=== PATIENT | female | born 1940 | race Caucasian/White ===

== ENCOUNTER 2020-10-19 15:07 | Inpatient (IN) | payer MEDICARE ==
[~2020-10-19] VITALS: Ht 162.6 cm; Wt 81.6 kg
[2020-10-19 15:09] VITALS: BP 138/74
[2020-10-19] MEDS ORDERED: LIPITOR 10 MG10 M1 PO (15:15)
[2020-10-19] MEDS ORDERED: CHILDREN'S ASPI81 M1 PO (15:15)
[2020-10-19] MEDS ORDERED: OMEPRAZOLE 20 M20 M1 PO (15:16)
[2020-10-19] MEDS ORDERED: KAPSPARGO SPRIN50 MG PO (15:16)
[2020-10-19 15:37] LABS: ABSOLUTE LYMPHOCYTES 1.2 thou/uL (0.8-5.3); ABSOLUTE MONOCYTES 0.2 thou/uL (0.0-1.2); ABSOLUTE NEUTROPHILS 3.3 thou/uL (1.6-8.1); BASOPHILS 0.8 %; HEMATOCRIT 34.4 % (37.0-47.0); HEMOGLOBIN 11.2 gm/dL (12.0-15.0); LYMPHOCYTES 25.1 %; MCH 27.2 pg (26.0-34.0); MCHC 32.6 g/dL (28.0-37.0); MCV 83.3 fL (80.0-100.0); MONOCYTES 4.8 %; MPV 7.7 fl. (7.2-11.1); NUCLEATED RBCS 0 /100WBC; PLATELET COUNT* 263 thou/uL (150-400); POLYS 69.3 %; RBC 4.13 mil/uL (4.20-5.00); RDW-CV 14.7 % (10.5-14.5); WBC 4.8 thou/uL (4.0-11.0)
[2020-10-19 15:47] LABS: CREATININE 0.8 mg/dL (0.6-1.3); POTASSIUM 3.1 mmol/L (3.5-5.1)
[2020-10-19 15:51] LABS: ALBUMIN 2.7 g/dL (3.4-5.0); TOTAL BILIRUBIN 0.3 mg/dL (<0.1-1.0); TOTAL PROTEIN 6.4 g/dL (6.4-8.2)
[2020-10-19 18:16] LABS: URINE BILIRUBIN NEGATIVE (Negative); URINE BLOOD TRACE (Negative); URINE CLARITY CLEAR; URINE COLOR YELLOW; URINE GLUCOSE-RANDOM NEGATIVE (Negative); URINE KETONES NEGATIVE (Negative); URINE LEUKOCYTES-REFLEX NEGATIVE (Negative); URINE NITRITE-REFLEX NEGATIVE (Negative); URINE PROTEIN 1+ (Negative); URINE UROBILINOGEN 0.2 E.U./dl (0.2-1.0)
[2020-10-19 21:00] VITALS: BP 130/56
[2020-10-20] VITALS (7 sets, daily range): BP systolic 95–136; BP diastolic 46–78
--- NOTE | 2020-10-20 09:16 | EKG ---
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
--- NOTE | 2020-10-20 17:51 | NUR ---
PT ARRIVED FROM ER AT 0835, SHE IS A/OX3, UP AD DIEGO, HR NSR ON TELE, ON 2L NC AND TOLERATING WELL. PT DENIES HAVING ANY C/O PAIN OR DISCOMFORT. SHE HAS ADEQUATE URINE OUTPUT, AND HAD A BM TOADAY. 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
[2020-10-21 00:31] VITALS: BP 117/52
--- NOTE | 2020-10-21 04:34 | NUR ---
ASSUMED CARE AT 1905H, ON NC AT 2LPM AND TOLERATED. SEEN ON BED COMFORTABLE. NO FEVER AND NO DISTRESS. CONTINUE MONITORING AND TOWARDS GOALS.
[2020-10-21 04:42] VITALS: BP 129/46
[2020-10-21 05:12] LABS: ABSOLUTE LYMPHOCYTES 0.9 thou/uL (0.8-5.3); ABSOLUTE MONOCYTES 0.2 thou/uL (0.0-1.2); ABSOLUTE NEUTROPHILS 3.5 thou/uL (1.6-8.1); BASOPHILS 0.1 %; HEMATOCRIT 28.6 % (37.0-47.0); HEMOGLOBIN 9.6 gm/dL (12.0-15.0); LYMPHOCYTES 19.2 %; MCHC 33.7 g/dL (28.0-37.0); MCV 83.2 fL (80.0-100.0); MPV 7.8 fl. (7.2-11.1); NUCLEATED RBCS 0 /100WBC; PLATELET COUNT* 265 thou/uL (150-400); POLYS 75.7 %; RBC 3.44 mil/uL (4.20-5.00); RDW-CV 14.9 % (10.5-14.5); WBC 4.6 thou/uL (4.0-11.0)
[2020-10-21 05:37] LABS: ALBUMIN 2.3 g/dL (3.4-5.0); CALCIUM 8.1 mg/dL (8.5-10.1); CREATININE 0.8 mg/dL (0.6-1.3); MAGNESIUM 2.2 mg/dL (1.8-2.4); POTASSIUM 3.3 mmol/L (3.5-5.1); TOTAL BILIRUBIN 0.2 mg/dL (<0.1-1.0); TOTAL PROTEIN 5.7 g/dL (6.4-8.2)
[2020-10-21 05:38] LABS: APTT 31.9 Seconds (25.0-31.3); INR 0.9
[2020-10-21 08:30] VITALS: BP 109/70
[2020-10-21 12:29] VITALS: BP 124/888
--- NOTE | 2020-10-21 14:03 | NUR ---
CM spoke with Pt's via phone. Pt is covid positive, on enhanced precautions. is negative. Pt is A&O. Normally independent. No DME. Pt does not wear home o2. No hx of HH or SNF. Goal is home at dc. Pt will need an ex ox at dc, if continuing to require o2, Pt is presently on 2L. GI consult for colitis. Plan to complete Remdisivir prior to dc.
[2020-10-21 15:53] VITALS: BP 145/67
--- NOTE | 2020-10-21 18:56 | NUR ---
PATIENT HAS REMAINED A&OX4, PLEASANT AND COOPERATIVE WITH CARES. PATIENT'S ONLY COMPLAINT IS LOOSE STOOLS. DENIES PAIN/N/V. MEDICATIONS AND FLUIDS ADMINISTERED ORDERED. PATIENT UP AD DIEGO TO BSC. CALL LIGHT AND FREQUENTLY USED ITEMS WITHIN REACH.
[2020-10-22] VITALS: BP 127/46
[2020-10-22 04:00] VITALS: BP 139/65
--- NOTE | 2020-10-22 05:27 | NUR ---
PT AO X4 LYING IN BED FOR ASSESSMENT THIS PM SHIFT. SHE IS FEELING BETTER OTHER THAN THE DIARRHEA. SHE IS HAVING QUITE A BIT OF BROWN LIQUID STOOL AND IS REQUESTING SOMETHING FOR THIS. HER POTASSIUM WAS LOW AND THIS WAS REPLACED LAST PM. PT IS GETTING UP TO BSC INDEPENDENTLY WITHOUT PROBLEM. PT WAS HAVING SOME DESATURATION AT BEDTIME AND RT PUT A HUMIDIFIER ON AND BUMPED HER UP TO 4L FOR BEDTIME, SHE MAINTAINED SAT>90 FOR THE REMAINDER OF THE NIGHT.CALL LIGHT WITHIN REACH.
[2020-10-22 07:33] LABS: HEMATOCRIT 31.8 % (37.0-47.0); HEMOGLOBIN 10.3 gm/dL (12.0-15.0); MCH 26.6 pg (26.0-34.0); MCHC 32.3 g/dL (28.0-37.0); MCV 82.4 fL (80.0-100.0); MPV 7.8 fl. (7.2-11.1); NUCLEATED RBCS 0 /100WBC; PLATELET COUNT* 316 thou/uL (150-400); RBC 3.86 mil/uL (4.20-5.00); RDW-CV 15.1 % (10.5-14.5); WBC 7.5 thou/uL (4.0-11.0)
[2020-10-22 07:44] LABS: ALBUMIN 2.3 g/dL (3.4-5.0); CALCIUM 8.2 mg/dL (8.5-10.1); CREATININE 0.8 mg/dL (0.6-1.3); MAGNESIUM 1.9 mg/dL (1.8-2.4); POTASSIUM 3.6 mmol/L (3.5-5.1); TOTAL BILIRUBIN 0.3 mg/dL (<0.1-1.0); TOTAL PROTEIN 5.9 g/dL (6.4-8.2)
[2020-10-22 08:06] LABS: ABSOLUTE LYMPHOCYTES 0.7 thou/uL (0.8-5.3); ABSOLUTE MONOCYTES 0.1 thou/uL (0.0-1.2); ABSOLUTE NEUTROPHILS 6.8 thou/uL (1.6-8.1); PLATELET ESTIMATE ADEQUATE
[2020-10-22 08:07] LABS: ANISOCYTOSIS 1+; POIKILOCYTOSIS 1+
[2020-10-22 08:23] VITALS: BP 133/66
[2020-10-22 12:00] VITALS: BP 139/72
--- NOTE | 2020-10-22 14:07 | NUR ---
Covid positive. Pt on 6L. Continue Remdisivir
[2020-10-22 18:44] VITALS: BP 142/70
--- NOTE | 2020-10-22 18:52 | NUR ---
PATIENT HAS REMAINED A&OX4, PLEASANT AND COOPERATIVE WITH CARES THIS SHIFT. PATIENT CONTINUES TO C/O DIARRHEA. STOOL SPECIMEN COLLECTED AND TAKEN TO LAB PER ORDER FROM DR. MAR. PATIENT'S OXYGEN NEEDS HAVE INCREASED COMPARED TO PREVIOUS SHIFT. MEDICATIONS ADMINISTERED ORDERED. PATIENT HAS 1 BOTTLE OF POTASSIUM, WHICH SOMEONE DROPPED OFF TO HER TODAY, IN THE PHARMACY. CALL LIGHT AND FREQUENTLY USED ITEMS WITHIN REACH.
[2020-10-22 20:30] VITALS: BP 140/79
[2020-10-23 00:46] VITALS: BP 145/53
[2020-10-23 03:59] VITALS: BP 138/67
--- NOTE | 2020-10-23 05:36 | NUR ---
PT AO X4, 6L NC, SHE RECEIVED A LATE DOSE OF LASIX AND HAS HAD A LARGE VOLUME OF URINE OUT THIS PM. IV ACCESS OBTAINED AND PT TAKEN TO CT FOR CTA BY WHEELCHAIR BY THIS RN. PT HAVING NO DISTRESS THROUGHOUT THE PROCEDURE. PT SATS DID FALL TO THE 87-88 RANGE WHILE SLEEPING, SHE WAS SNORING AND BREATHING SHALLOW AT THE TIME BUT WOKE EASILY AND SATS WERE AGAIN <90%. PT NOT EATING DUE TO FOOD NOT TASTING WELL, I ENCOURAGED HER TO ORDER FROM THE KITCHEN SOMETHING THAT SOUNDS GOOD TO HER. CALL LIGHT WITHIN REACH
[2020-10-23 07:13] LABS: HEMOGLOBIN 10.9 gm/dL (12.0-15.0); MCH 26.2 pg (26.0-34.0); RBC 4.14 mil/uL (4.20-5.00)
[2020-10-23 07:38] LABS: ALBUMIN 2.3 g/dL (3.4-5.0); CALCIUM 8.3 mg/dL (8.5-10.1); CREATININE 0.7 mg/dL (0.6-1.3); MAGNESIUM 1.9 mg/dL (1.8-2.4); POTASSIUM 3.3 mmol/L (3.5-5.1); TOTAL BILIRUBIN 0.4 mg/dL (<0.1-1.0); TOTAL PROTEIN 6.1 g/dL (6.4-8.2)
[2020-10-23 12:00] VITALS: BP 117/55
--- NOTE | 2020-10-23 14:19 | NUR ---
Covid positive. Anticipate dc in a few days. Pt o2 needs went up to 10L. Plan plasma today. GI following for diarrhea.
[2020-10-23 16:30] VITALS: BP 149/69; BP 153/62; BP 155/68
[2020-10-23 19:20] VITALS: BP 140/76
--- NOTE | 2020-10-23 20:46 | NUR ---
Pt remained A&O x4. Pt increased oxygen needs slightly today and will desat when getting up to the commode but oxygen rebounds quickly back to normal. Pt up to chair for second part of shift. Bed in low position, call light within reach.
[2020-10-24 00:24] VITALS: BP 122/43
--- NOTE | 2020-10-24 00:29 | NUR ---
ASSUMED CARE OF PT AT 1900. PT IS ALERT AND ORIENTED. VSS. PERRLA. PT IS ON 10 LITERS HIGH FLOW NASAL CANNULA. PT IS IN SINUS RYTHM ON THE TELEMETRY. PT IS RESTING COMFORTABLY IN BED. RESPIRATIONS ARE EVEN AND NONLABORED. WILL CONTINUE TO MONITOR PT.
[2020-10-24 04:05] VITALS: BP 138/63
[2020-10-24 04:51] LABS: HEMATOCRIT 31.5 % (37.0-47.0); HEMOGLOBIN 10.4 gm/dL (12.0-15.0); MCH 27.2 pg (26.0-34.0); MCHC 33.1 g/dL (28.0-37.0); MCV 82.1 fL (80.0-100.0); MPV 8.1 fl. (7.2-11.1); RBC 3.84 mil/uL (4.20-5.00); RDW-CV 15.2 % (10.5-14.5); WBC 4.5 thou/uL (4.0-11.0)
[2020-10-24 05:04] LABS: ALBUMIN 2.3 g/dL (3.4-5.0); CALCIUM 8.3 mg/dL (8.5-10.1); CREATININE 0.7 mg/dL (0.6-1.3); MAGNESIUM 1.9 mg/dL (1.8-2.4); POTASSIUM 3.3 mmol/L (3.5-5.1); TOTAL BILIRUBIN 0.5 mg/dL (<0.1-1.0)
[2020-10-24 08:25] VITALS: BP 118/67
[2020-10-24 09:43] LABS: BE 5.1 mmol/L (-2 to +3); PCO2 39.4 mmHg (35.0-45.0); PO2 79.2 mmHg (75.0-100.0); pH 7.482 (7.340-7.450)
--- NOTE | 2020-10-24 13:47 | NUR ---
Covid positive. Anticipate dc in a few days. On 7L o2. Doing well, will start neb
[2020-10-24 14:45] VITALS: BP 131/54; BP 132/58; BP 135/61
[2020-10-24 17:30] LABS: CALCIUM 8.5 mg/dL (8.5-10.1); CREATININE 0.8 mg/dL (0.6-1.3); POTASSIUM 3.1 mmol/L (3.5-5.1)
[2020-10-24 20:15] VITALS: BP 134/56
--- NOTE | 2020-10-24 21:56 | NUR ---
Pt remained A&O x4 for entire shift. Pt had some trouble keeping O2 Sat stable this morning and was placed on a non-rebreather mask. Dr. Camejo notified and orders recieved. Pt given extra dose of lasix. Pt noted preferring the mask to the NC because it did not hurt her nose and give her a headache. This afternoon when Dr. Paulson saw the pt, he asked that we try the NC again with a lower flow of O2 so it did not hurt her nose. Pt switched to NC at 8L and tolerated well. Pt given 2nd unit of convalescent plasma this afternoon and no reactions noted. Meds given per MAY. Fall precautions in place.
--- NOTE | 2020-10-24 23:23 | CON ---
[address] [address] CONSULTATION Name: ELI NÚÑEZ Room: [address] IN M.R.#: [id number] Admission: 10/19/20 Attend Phys: Albert Lucas Discharge: Date of : 42 Report #: [id number] THIS REPORT FOR: cc: FAM - Family physician unknown FAM - Family physician unknown Erasmo Paulson MD ~ DATE OF CONSULTATION: 10/20/2020 REQUESTING PHYSICIAN: Hernando George MD. INDICATION FOR CONSULTATION: Respiratory failure/hypoxia/COVID positive. HISTORY OF PRESENT ILLNESS: A 80-year-old female with past medical history is as mentioned below. This does include a history of coronary artery disease. She has also had a longstanding history of pain in her right buttock and leg. The patient now initially went to an outside institution. She was complaining of intractable nausea, vomiting and diarrhea. The patient has a long wait time in the Emergency Room and decided to not stay at that institution and came over to our hospital. The patient also has had shortness of breath. She has had a cough. There is not much sputum. Does not have upper respiratory complaints. There is no increase in swelling of lower extremities. Her leg pain is about the same as her baseline. The patient's nausea, vomiting and diarrhea have improved since admission. She does state that she feels significantly fatigued and was dizzy initially. Has received saline resuscitation. The patient is reported to had been hypoxemic on room air; however, is maintaining O2 saturation of around 91% on 1 liter oxygen via nasal cannula. REVIEW OF SYSTEMS: The patient's review of systems for 12 points is negative except as mentioned above with the exception that she also says that she has had a poor appetite. PAST MEDICAL HISTORY: Coronary artery disease, status post stents in 2006, myocardial infarction, I do not have a measure of her left ventricular ejection fraction available. Longstanding history of right buttock and leg pain, hyperlipidemia, hypertension, hysterectomy, gallbladder surgery, T and A. Possible history of gastroesophageal reflux disease. SOCIAL HISTORY: No known history of smoking, ethanol abuse, or drug abuse. CURRENT MEDICATIONS: List in [facility] reviewed. HOME MEDICATIONS: List also in [facility] reviewed. FAMILY HISTORY: [place] [address] CONSULTATION Name: ELI NÚÑEZ Room: [address]#: [id number] Admission: 10/19/20 Attend Phys: Albert Lucas Discharge: Date of : 42 Report #: [id number] IMMUNIZATION HISTORY: The patient has not been vaccinated for COVID-19. PHYSICAL EXAMINATION: GENERAL: She is alert, awake and oriented, does not appear to be in any distress at this time. VITAL SIGNS: Has a pulse of 77 and a blood pressure of 100/56, has a low-grade fever of 37.7, saturating 91%. She is on 1 liter nasal cannula. Respiratory rate is mildly elevated to 20. HEENT: Normocephalic and atraumatic. NECK: Does not show raised JVP. CHEST: Clear to auscultation. HEART: Regular. There is no murmur. ABDOMEN: Soft and nontender. EXTREMITIES: She has some tenderness over the lateral aspect of her right buttock as well as high. There is no calf tenderness. There is no swelling of lower extremities. SKIN: Skin of her lower extremities is dry and intact. NEUROLOGIC: Moves all extremities bilaterally equally and spontaneously with no focal deficit identified. LABORATORY DATA: The patient's lab work is in [facility] and this is reviewed. Chest x-ray which does show an infiltrate, but including a lobar infiltrate in the right middle lobe region in [facility] reviewed. The patient did have a CT of the abdomen and pelvis performed yesterday. The right middle and lower lobe are partially imaged, I in fact do not see any large infiltrates in this region in the CT abdomen films. ASSESSMENT AND PLAN: 1. Acute hypoxemic respiratory failure secondary to COVID-19, titrate oxygen, encourage prone positioning, avoid supine sleep, out of bed to chair as tolerated. 2. COVID-19, agree with dexamethasone and remdesivir. LFTs are mildly elevated. I still feel that the benefit of remdesivir is greater than the risk. Watch LFTs. 3. Pulmonary infiltrate, not fully apparent based on the current imaging as to whether there in fact is a lobar infiltrate in the right middle lobe region. For now, I do agree with continuing with doxycycline as well as ceftriaxone. We will do a sputum culture as well as nasal swab for MRSA. If further clarification is needed, then I will consider a CT chest, but for now, I only ordered a chest x-ray for tomorrow morning. 4. Nausea, vomiting and diarrhea leading to hypokalemia. I would go ahead and replace potassium. Also, I added a magnesium level to the last available set of labs. If this is low. We will give her magnesium as well. Note that she is receiving IV fluids and the GI service has also been consulted. Diarrhea is [facility] [address] [facility] [place] [address] CONSULTATION Name: ELI NÚÑEZ Room: [address] IN .R.#: [id number] Admission: 10/19/20 Attend Phys: Albert Lucas Discharge: Date of : 42 Report #: [id number] likely secondary to COVID-19. 5. Right leg/buttock pain. This is likely longstanding. Regardless, I will do a D-dimer tomorrow morning. If elevated, we will consider obtaining venous Dopplers. 6. GI prophylaxis/possible history of gastroesophageal reflux disease, on a PPI. 7. Deep venous thrombosis prophylaxis, Lovenox. 8. Clostridium difficile prophylaxis, Lactinex. Thanks for this consultation. <ELECTRONICALLY SIGNED> By: Erasmo Paulson MD 10/24/20 2323 1713 [id number] alberto Paulson MD /nt
[2020-10-25 00:45] VITALS: BP 132/65
--- NOTE | 2020-10-25 02:02 | NUR ---
ASSUMED CARE OF PT AT 1900. PT IS ALERT AND ORIENTED. VSS. PERRLA. NO COMPLAINTS OF PAIN. PT IS ON 7 LITERS O2. PT IS IN SINUS RYTHM ON THE TELEMETRY. PT IS RESTING COMFORTABLY IN BED. RESPIRATIONS ARE EVEN AND NONLABORED. WILL CONTINUE TO MONITOR PT.
[2020-10-25 04:31] VITALS: BP 131/66
[2020-10-25 08:36] VITALS: BP 156/62
[2020-10-25 12:15] VITALS: BP 151/76
--- NOTE | 2020-10-25 15:53 | NUR ---
Covid positive. Anticipate dc in a few days. On 10L, continue to wean
[2020-10-25 16:14] VITALS: BP 137/55
[2020-10-25 17:26] LABS: CALCIUM 8.7 mg/dL (8.5-10.1); CREATININE 0.8 mg/dL (0.6-1.3); POTASSIUM 3.1 mmol/L (3.5-5.1)
[2020-10-25 17:31] LABS: ALBUMIN 2.7 g/dL (3.4-5.0); TOTAL BILIRUBIN 0.5 mg/dL (<0.1-1.0); TOTAL PROTEIN 6.7 g/dL (6.4-8.2)
[2020-10-25 20:10] VITALS: BP 120/54
[2020-10-26 00:47] VITALS: BP 146/61
--- NOTE | 2020-10-26 03:00 | NUR ---
ASSUMED CARE OF PT AT 1900. PT IS ALERT AND ORIENTED. VSS. NO COMPLAINTS OF PAIN. PT IS ON 10 LITERS NASAL CANNULA. PT IS IN SINUS RYTHM ON THE TELEMETRY. PT IS RESTING COMFORTABLY IN BED. RESPIRATIONS ARE EVEN AND NONLABORED. WILL CONTINUE TO MONITOR PT.
[2020-10-26 04:37] VITALS: BP 125/63
[2020-10-26 05:50] LABS: HEMATOCRIT 31.3 % (37.0-47.0); HEMOGLOBIN 10.7 gm/dL (12.0-15.0); MCH 27.7 pg (26.0-34.0); MCHC 34.1 g/dL (28.0-37.0); MCV 81.1 fL (80.0-100.0); NUCLEATED RBCS 0 /100WBC; RBC 3.86 mil/uL (4.20-5.00); RDW-CV 15.3 % (10.5-14.5); WBC 7.6 thou/uL (4.0-11.0)
[2020-10-26 06:06] LABS: ALBUMIN 2.4 g/dL (3.4-5.0); CALCIUM 8.6 mg/dL (8.5-10.1); CREATININE 0.7 mg/dL (0.6-1.3); MAGNESIUM 2.3 mg/dL (1.8-2.4); TOTAL BILIRUBIN 0.5 mg/dL (<0.1-1.0); TOTAL PROTEIN 5.8 g/dL (6.4-8.2)
[2020-10-26 06:15] LABS: POTASSIUM 4.3 mmol/L (3.5-5.1)
[2020-10-26 06:47] LABS: PLATELET COUNT* 472 thou/uL (150-400)
--- NOTE | 2020-10-26 07:29 | NUR ---
MRS FLEMING SPO2 DROPPED INTO THE 80'S THIS MORNING. PT WAS TURNED TO 15 LITERS O2. SPO2 REMAINED IN THE 80'S. PT WAS THEN PLACED ON THE NON REBREATHER. SPO2 IS NOW 94 PERCENT. PULMONARY PAGED. RT NOTIFIED.
[2020-10-26 07:30] VITALS: BP 167/79
[2020-10-26 08:25] LABS: ABSOLUTE LYMPHOCYTES 0.4 thou/uL (0.8-5.3); ABSOLUTE MONOCYTES 0.2 thou/uL (0.0-1.2); ABSOLUTE NEUTROPHILS 7.1 thou/uL (1.6-8.1); PLATELET ESTIMATE ADEQUATE
[2020-10-26 12:49] VITALS: BP 154/70
[2020-10-26 16:25] VITALS: BP 152/75
--- NOTE | 2020-10-26 16:50 | NUR ---
PT REMAINED ALERT AND ORIENTED. PT VERY DROWSY. PT O2 NEEDS INCREASED, RESPIRATORY ON THE CASE. PT UP TO CHAIR TO PROMOTE OXYGENATION. FAMILY UPDATED. FALL RISK PRECAUTIONS IN PLACE. HOURLY ROUNDING COMPLETED. HEART MONITORED. CALL LIGHT WITHIN REACH.
[2020-10-26 22:23] VITALS: BP 136/60
--- NOTE | 2020-10-27 | NUR ---
ASSUMED CARE OF PT AT 1900. PT IS ALERT AND ORIENTED. VSS. PERRLA. PT IS ON 10 LITERS NASAL CANNULA. PT IS SINUS RYTHM ON THE TELEMETRY. PT IS RESTING COMFORTABLY IN BED. RESPIRATIONS ARE EVEN AND NONLABORED. WILL CONTINUE TO MONITOR PT.
[2020-10-27 00:14] VITALS: BP 138/58
[2020-10-27 05:06] VITALS: BP 120/52
[2020-10-27 05:24] LABS: HEMATOCRIT 30.9 % (37.0-47.0); HEMOGLOBIN 10.5 gm/dL (12.0-15.0); MCH 27.3 pg (26.0-34.0); MCHC 33.9 g/dL (28.0-37.0); MCV 80.7 fL (80.0-100.0); MPV 7.9 fl. (7.2-11.1); RBC 3.83 mil/uL (4.20-5.00); WBC 7.3 thou/uL (4.0-11.0)
[2020-10-27 05:39] LABS: CALCIUM 8.5 mg/dL (8.5-10.1); CREATININE 0.7 mg/dL (0.6-1.3); POTASSIUM 4.1 mmol/L (3.5-5.1)
--- NOTE | 2020-10-27 07:06 | NUR ---
TOOK OVER PATIENT CARE AT APPROXIMATELY 0110 FROM NIGHT NURSE SHANNAN. I AGREE WITH NIGHT NURSES PRIOR ASSESSMENT. PATIENT HAS RESTED WELL THROUGHOUT THE NIGHT. VSS ON 10L 02 ON HIGH FLOW NASAL CANNULA. IV RIGHT AC-SL. PATIENT INSTRUCTED TO USE CALL LIGHT WHEN NEEDING ASSISTANCE. HOURLY ROUNDS MADE. WILL CONTINUE WITH PLAN OF CARE AND NURSING TO MONITOR.
[2020-10-27 08:35] VITALS: BP 137/65
[2020-10-27 14:21] VITALS: BP 142/64
--- NOTE | 2020-10-27 17:25 | NUR ---
PATIENT HAS REMAINED A&OX4, PLEASANT AND COOPERATIVE WITH CARES THIS SHIFT. PATIENT IS ON O2@10L HF VIA NASAL CANNULA AND IS ENCOURAGED TO USE IS. PATIENT IS UP AD DIEGO TO BSC. MEDICATIONS ADMINISTERED ORDERED. CALL LIGHT AND FREQUENTLY USED ITEMS WITHIN REACH.
[2020-10-27 19:52] VITALS: BP 133/56
[2020-10-27 20:30] VITALS: BP 151/85
[2020-10-28 02:35] VITALS: BP 121/54
--- NOTE | 2020-10-28 03:59 | NUR ---
PT SLEPT MOST OF SHIFT. ASSESSMENT DOCUMENTED. MEDS GIVEN PER E-MAR. IV PATENT. NO REPORTS OF PAIN. PT ON 10L NC THIS SHIFT. PT ABLE TO MAKE NEEDS KNOWN. WILL CONTINUE WITH PLAN OF CARE.
[2020-10-28 04:57] VITALS: BP 127/61
[2020-10-28 05:34] LABS: HEMATOCRIT 33.8 % (37.0-47.0); MCH 26.4 pg (26.0-34.0); MCHC 32.4 g/dL (28.0-37.0); MCV 81.4 fL (80.0-100.0); MPV 8.1 fl. (7.2-11.1); RBC 4.16 mil/uL (4.20-5.00); RDW-CV 14.7 % (10.5-14.5); WBC 8.6 thou/uL (4.0-11.0)
[2020-10-28 05:54] LABS: CALCIUM 8.6 mg/dL (8.5-10.1); CREATININE 0.6 mg/dL (0.6-1.3); POTASSIUM 4.5 mmol/L (3.5-5.1)
[2020-10-28 08:00] VITALS: BP 140/84
--- NOTE | 2020-10-28 15:18 | NUR ---
Covid positive. Pt anxious to dc home. Ex ox completed, Pt required >15L with mobility, no dc today.
[2020-10-28 20:00] VITALS: BP 136/64
[2020-10-29] VITALS: BP 158/60
[2020-10-29 04:00] VITALS: BP 125/59
--- NOTE | 2020-10-29 06:07 | NUR ---
PT SLEPT ON AND OFF THIS SHIFT. ADMISSION DOCUMENTED. MEDS GIVEN PER E-MAY. IV PATENT. NO REPORTS OF PAIN. PT ON 10L NC THIS SHIFT, AND DESATS INTO 70'S WHEN GETTING UP TO COMODE. PT ABLE TO MAKE NEEDS KNOWN. WILL CONTINUE WITH PLAN OF CARE.
[2020-10-29 07:52] LABS: HEMATOCRIT 38.6 % (37.0-47.0); HEMOGLOBIN 12.5 gm/dL (12.0-15.0); MCH 26.6 pg (26.0-34.0); MCHC 32.5 g/dL (28.0-37.0); MCV 81.9 fL (80.0-100.0); MPV 7.9 fl. (7.2-11.1); NUCLEATED RBCS 0 /100WBC; PLATELET COUNT* 536 thou/uL (150-400); RBC 4.71 mil/uL (4.20-5.00); RDW-CV 14.9 % (10.5-14.5); WBC 9.5 thou/uL (4.0-11.0)
[2020-10-29 08:00] VITALS: BP 102/55
[2020-10-29 08:10] LABS: ALBUMIN 2.7 g/dL (3.4-5.0); CALCIUM 8.8 mg/dL (8.5-10.1); CREATININE 0.8 mg/dL (0.6-1.3); MAGNESIUM 2.3 mg/dL (1.8-2.4); POTASSIUM 4.2 mmol/L (3.5-5.1); TOTAL BILIRUBIN 0.7 mg/dL (<0.1-1.0); TOTAL PROTEIN 6.4 g/dL (6.4-8.2)
[2020-10-29 08:44] LABS: ABSOLUTE LYMPHOCYTES 0.7 thou/uL (0.8-5.3); ABSOLUTE MONOCYTES 0.1 thou/uL (0.0-1.2); ABSOLUTE NEUTROPHILS 8.7 thou/uL (1.6-8.1); ANISOCYTOSIS 1+; PLATELET ESTIMATE INCREASED; POIKILOCYTOSIS 1+
[2020-10-29 11:58] VITALS: BP 110/60
--- NOTE | 2020-10-29 15:10 | NUR ---
On 10L, continue to wean. GI eval ordered for loose stools. Up and out of bed today.
[2020-10-29 15:50] VITALS: BP 118/57
[2020-10-29 20:30] VITALS: BP 128/57
[2020-10-30 00:27] VITALS: BP 104/70
--- NOTE | 2020-10-30 03:55 | NUR ---
PT SLEPT MOST OF SHIFT. ASSESSMENT DOCUMENTED. MEDS GIVEN PER E-MAR. IV PATENT. PAIN MEDS GIVEN PER E-MAR WITH RELIEF. PT ON 8L NC WHILE AWAKE. PT ON BIPAP WHILE SLEEPING. PT ABLE TO MAKE NEEDS KNOWN. WILL CONTINUE WITH PLAN OF CARE.
[2020-10-30 04:11] VITALS: BP 96/46
[2020-10-30 08:02] LABS: HEMATOCRIT 36.2 % (37.0-47.0); HEMOGLOBIN 11.7 gm/dL (12.0-15.0); MCH 26.4 pg (26.0-34.0); MCHC 32.5 g/dL (28.0-37.0); MCV 81.4 fL (80.0-100.0); MPV 8.5 fl. (7.2-11.1); RBC 4.45 mil/uL (4.20-5.00); RDW-CV 14.9 % (10.5-14.5); WBC 13.4 thou/uL (4.0-11.0)
[2020-10-30 08:10] LABS: CALCIUM 8.6 mg/dL (8.5-10.1); CREATININE 0.7 mg/dL (0.6-1.3); POTASSIUM 4.2 mmol/L (3.5-5.1)
[2020-10-30 09:45] VITALS: BP 119/66
[2020-10-30 12:00] VITALS: BP 107/66
[2020-10-30 16:22] VITALS: BP 123/72
[2020-10-30 20:39] VITALS: BP 138/80
[2020-10-31 01:19] VITALS: BP 114/72
[2020-10-31 04:51] VITALS: BP 141/66
[2020-10-31 05:20] LABS: HEMATOCRIT 37.1 % (37.0-47.0); HEMOGLOBIN 11.8 gm/dL (12.0-15.0); MCH 26.2 pg (26.0-34.0); MCHC 31.6 g/dL (28.0-37.0); MCV 82.8 fL (80.0-100.0); RBC 4.49 mil/uL (4.20-5.00); RDW-CV 15.5 % (10.5-14.5); WBC 14.1 thou/uL (4.0-11.0)
[2020-10-31 05:21] LABS: MPV 8.4 fl. (7.2-11.1)
[2020-10-31 05:36] LABS: CALCIUM 8.4 mg/dL (8.5-10.1); CREATININE 0.8 mg/dL (0.6-1.3); POTASSIUM 4.2 mmol/L (3.5-5.1)
[2020-10-31 07:37] VITALS: BP 132/70
--- NOTE | 2020-10-31 09:32 | NUR ---
PT IS ABLE TO COMMUNICATE HER NEEDS TO STAFF EFFECTIVELY. CURRENT PAIN MEDICATION REGIMEN HAS BEEN ADEQUATE FOR CONTROLLING HER PAIN UP TO THIS TIME. POSSIBLE DISCHARGE TODAY.
[2020-10-31 12:00] VITALS: BP 135/69
--- NOTE | 2020-10-31 15:05 | NUR ---
Therapies to pam. NAOMIE consulted. Pt on 4L.
[2020-10-31 20:30] VITALS: BP 118/82
[2020-11-01 00:14] VITALS: BP 121/69
[2020-11-01 04:23] VITALS: BP 120/60
--- NOTE | 2020-11-01 05:39 | NUR ---
PT AO X4 ON 4L NC. SHE IS ANXIOUS TO GO HOME BUT ADMITS SHE DESATS PRETTY QUICKLY WHEN UP. SHE REPORTS COUGH, BUT LESS THAN IT HAS BEEN. PT APPETITE IS LOW AND SHE BLAMES THIS ON THE FACT THAT EVERYTHING TASTES ODD. SHE HAS NOT HAD A BM FOR SEVERAL DAYS BUT ADMITS SHE HAS NOT HAD MUCH TO EAT. SHE DENIES PAIN AND TAKES MEDS ORALLY WITHOUT PROBLEMS. CALL LIGHT WITHIN REACH
[2020-11-01 08:00] VITALS: BP 124/64
[2020-11-01 12:00] VITALS: BP 118/59
--- NOTE | 2020-11-01 14:02 | NUR ---
OT eval today. On 7L. PT recommending home at dc. Ex ox to be completed. If Pt needs HH, fax dc orders, H&P and facesheet to [facility] [phone]
[2020-11-01 16:00] VITALS: BP 129/69
[2020-11-01] MEDS ORDERED: PREDNISONE 10 M10 MG PO (16:19)
[2020-11-01] MEDS ORDERED: PROAIR HFA8.5 GM INH (16:19)
--- NOTE | 2020-11-01 16:55 | NUR ---
CM FAXED ORDER, HP AND OXIMETRY FINDINGS TO [facility] AT [phone].
[2020-11-01 17:10] VITALS: BP 118/59
--- NOTE | 2020-11-01 18:42 | NUR ---
ASSUMED PT CARE AT 0730, PT AOX4, NO C/O PAIN OR SHORTNESS OF BREATH. PT WORKED W/ RT AND REST AND EXERCISE DONE AND DC ORDERS RECEIVED. IV AND MANUFACTURED BUILDINGS REPAIRER REMOVED. HOME O2 SET UP FOR PT. PT DC'D BY WC W/ NURSING STAFF AND ALL PAPERWORK AND PERSONAL BELONGINGS TO SON'S VEHICLE AT APPROX 1844
== END 2020-11-01 18:44 | disposition home or self-care (01) | DRG 177 ==
LOC: M.ERS 15:07 → M.TBA-ER 17:09 → M.ORTHSURG 17:09
PROVIDERS: Family Medicine; Internal Medicine; Internal Medicine Critical Care Medicine; ADMIT Internal Medicine; ATTEND Internal Medicine
DX: U07.1 COVID-19 (principal); J96.01 Acute respiratory failure with hypoxia; J12.82 Pneumonia due to coronavirus disease 2019; R65.10 Systemic inflammatory response syndrome (SIRS) of non-infectious origin without acute organ dysfunction; K55.9 Vascular disorder of intestine, unspecified; K57.32 Diverticulitis of large intestine without perforation or abscess without bleeding; A04.72 Enterocolitis due to Clostridium difficile, not specified as recurrent; I10 Essential (primary) hypertension; I25.10 Atherosclerotic heart disease of native coronary artery without angina pectoris; E78.5 Hyperlipidemia, unspecified; K21.9 Gastro-esophageal reflux disease without esophagitis; E87.6 Hypokalemia; E78.00 Pure hypercholesterolemia, unspecified; D64.9 Anemia, unspecified; E83.51 Hypocalcemia; K27.9 Peptic ulcer, site unspecified, unspecified as acute or chronic, without hemorrhage or perforation; K57.30 Diverticulosis of large intestine without perforation or abscess without bleeding; I25.2 Old myocardial infarction; Z95.5 Presence of coronary angioplasty implant and graft; Z90.710 Acquired absence of both cervix and uterus; Z90.49 Acquired absence of other specified parts of digestive tract; Z79.899 Other long term (current) drug therapy; Z79.82 Long term (current) use of aspirin